=== PATIENT | female | born 1955 | race Caucasian/White ===

== ENCOUNTER → 2016-07-14 | Outpatient (CLI) | payer OTHER ==
[2016-07-14 19:08] LABS: MEAN CORPUSCULAR HGB CONC 32.7 g/dl (32.0-36.5); MEAN CORPUSCULAR VOLUME 94.9 fl (80.0-96.0); RED CELL DISTRIBUTION WIDTH 12.8 % (11.5-14.5); WHITE BLOOD COUNT 8.1 K/mm3 (4.0-10.0)
[2016-07-14 19:23] LABS: ALBUMIN 3.8 GM/DL (3.2-5.2); ALKALINE PHOSPHATASE 190 U/L (45-117); ALT/SGPT 25 U/L (12-78); ANION GAP 8 MEQ/L (8-16); AST/SGOT 26 U/L (15-37); BILIRUBIN,TOTAL 0.5 MG/DL (0.2-1.0); BLOOD UREA NITROGEN 12 MG/DL (7-18); CALCIUM LEVEL 9.3 MG/DL (8.5-10.1); CARBON DIOXIDE LEVEL 31 MEQ/L (21-32); CHLORIDE LEVEL 101 MEQ/L (98-107); CREATININE FOR GFR 0.93 MG/DL (0.55-1.02); GLOMERULAR FILTRATION RATE > 60.0 (>51); GLUCOSE, FASTING 76 MG/DL (70-105); SODIUM LEVEL 140 MEQ/L (136-145); TOTAL PROTEIN 7.6 GM/DL (6.4-8.2)
== END ==
LOC: M LAB 16:24
PROVIDERS: ATTEND Physician Assistant
DX: R19.7 Diarrhea, unspecified (principal); K92.1 Melena

== ENCOUNTER → 2016-10-24 | Outpatient (REF) | payer OTHER | LOC: M LAB REF 20:34 | PROVIDERS: ATTEND Physician Assistant Medical | DX: N39.0 Urinary tract infection, site not specified (principal) ==

== ENCOUNTER → 2016-11-02 | Outpatient (REF) | payer OTHER | LOC: M SFHCADAM 12:07 | PROVIDERS: ATTEND Family Medicine | DX: R35.0 Frequency of micturition (principal) ==

== ENCOUNTER → 2016-11-19 | Outpatient (CLI) | payer OTHER ==
--- NOTE | 2016-11-19 12:11 | REP ---
Lumbar spine series: Five views. History: Chronic low back pain. No comparison studies. Findings: Lumbar vertebral body heights are preserved. Alignment is normal. There is fairly advanced degenerative disc disease in the lumbar spine at each level. This is most pronounced at L4-5 where the disc is quite narrowed with vacuum phenomenon and reactive sclerosis on either side of the 4-5 disc. Moderate degenerative disc changes are noted at L3-4 and L2-3 as well. Mild discogenic spurring is seen at L1-2. Disc spaces at all these levels are somewhat narrowed. On the AP view, there is a mild levoconvex curve in the lower lumbar spine. Psoas margins are symmetric. Sacrum and SI joints are intact. Pedicles and posterior elements are intact. There is no evidence of spondylolysis or spondylolisthesis. There is osteoarthritic facet sclerosis and narrowing and hypertrophy bilaterally at L4-5, L5-S1 and to some degree, at L3-4. Impression: Moderate degenerative spondylosis changes as described above. Signed by Destin Osborn MD 11/19/2016 12:58 P
== END ==
LOC: M ADAMS 11:03
PROVIDERS: ATTEND Physician Assistant
DX: G89.29 Other chronic pain (principal)

== ENCOUNTER → 2016-12-14 | Outpatient (CLI) | payer OTHER ==
--- NOTE | 2016-12-15 09:14 | REP ---
CT of the abdomen pelvis without IV or bowel contrast: Comparison is 09/16/2012. The visualized lung greenberg are unremarkable. There are multiple gallbladder calculi. This is unchanged. There is no gallbladder wall thickening or pericholecystic fluid or biliary duct dilatation. The unenhanced hepatic parenchyma is homogeneous and unchanged. The pancreas and spleen are normal size and unremarkable. The adrenals are unremarkable. There is a right renal upper pole cyst measuring 3.6 cm in diameter. This measured 2.5 cm previously. There are no renal calculi. There is no hydronephrosis. There is no retroperitoneal hematoma. The study is insensitive for aortic dissection in the absence of IV contrast. There is occasional aortic calcified atheroma. There is no change from the comparison study. There is no bowel distension. Mesentery is unremarkable. Pelvis: The patient states she has had appendectomy. There is a 2.0 cm low-density nodule in the left adnexa containing calcification and septation, unchanged. This could represent a cyst with wall calcification or dermoid. The right adnexa is unremarkable. The uterus and bladder are unremarkable. There is no pelvic adenopathy or ascites. The pelvic bowel loops are unremarkable. Impression: Cholelithiasis without evidence of acute cholecystitis or biliary duct dilatation. There is no retroperitoneal hematoma. In the absence of IV contrast the study is insensitive for aortic dissection. Chronic stable 2.0 left adnexal nodule, low density with rim calcification and septation, unchanged, dermoid versus chronic cyst. Signed by Rafy Lala MD 12/14/2016 08:10 A
== END ==
LOC: M RAD 07:10
PROVIDERS: ATTEND Family Medicine
DX: M54.5 Low back pain (principal); K80.20 Calculus of gallbladder without cholecystitis without obstruction; R93.5 Abnormal findings on diagnostic imaging of other abdominal regions, including retroperitoneum

== ENCOUNTER → 2017-01-04 | Outpatient (REF) | payer OTHER | LOC: M SMT 13:30 | PROVIDERS: ATTEND Nurse Practitioner Women's Health | DX: R35.0 Frequency of micturition (principal) ==

== ENCOUNTER → 2017-06-01 | Outpatient (REF) | payer OTHER ==
[2017-06-01 10:49] LABS: APPEARANCE, URINE HAZY (CLEAR); BACTERIA, URINE AUTO NEGATIVE (NEGATIVE); BILIRUBIN, URINE AUTO NEGATIVE (NEGATIVE); BLOOD, URINE BLOOD 1+ (NEGATIVE); COLOR, URINE YELLOW (YELLOW); GLUCOSE, URINE (UA) AUTO NEGATIVE (NEGATIVE); KETONE, URINE AUTO NEGATIVE (NEGATIVE); LEUKOCYTE ESTERASE, URINE AUTO 2+ (NEGATIVE); NITRITE, URINE AUTO NEGATIVE (NEGATIVE); PROTEIN, URINE AUTO NEGATIVE (NEGATIVE); RBC, URINE AUTO 2 /HPF (0-3); SQUAMOUS EPITHELIAL CELL UR AU 2 /HPF (0-6); UROBILINOGEN, URINE AUTO 0.2 mg/dL (0.0-2.0); WBC, URINE AUTO 3 /HPF (0-3)
== END ==
LOC: M LAB REF 10:20
DX: R35.0 Frequency of micturition (principal)

== ENCOUNTER → 2017-06-12 | Outpatient (REF) | payer OTHER ==
[2017-06-12 21:59] LABS: APPEARANCE, URINE HAZY (CLEAR); BACTERIA, URINE AUTO 1+ (NEGATIVE); BILIRUBIN, URINE AUTO NEGATIVE (NEGATIVE); BLOOD, URINE BLOOD 1+ (NEGATIVE); COLOR, URINE YELLOW (YELLOW); GLUCOSE, URINE (UA) AUTO NEGATIVE (NEGATIVE); KETONE, URINE AUTO NEGATIVE (NEGATIVE); LEUKOCYTE ESTERASE, URINE AUTO 3+ (NEGATIVE); NITRITE, URINE AUTO NEGATIVE (NEGATIVE); PROTEIN, URINE AUTO NEGATIVE (NEGATIVE); RBC, URINE AUTO 4 /HPF (0-3); SPECIFIC GRAVITY URINE AUTO 1.012 (1.002-1.035); SQUAMOUS EPITHELIAL CELL UR AU 9 /HPF (0-6); UROBILINOGEN, URINE AUTO 0.2 mg/dL (0.0-2.0); WBC, URINE AUTO 21 /HPF (0-3)
== END ==
LOC: M LAB REF 11:17
DX: N39.0 Urinary tract infection, site not specified (principal)

== ENCOUNTER → 2017-08-03 | Outpatient (REF) | payer OTHER ==
[2017-08-03 21:52] LABS: APPEARANCE, URINE CLEAR (CLEAR); BACTERIA, URINE AUTO 1+ (NEGATIVE); BILIRUBIN, URINE AUTO NEGATIVE (NEGATIVE); BLOOD, URINE BLOOD 3+ (NEGATIVE); COLOR, URINE YELLOW (YELLOW); GLUCOSE, URINE (UA) AUTO NEGATIVE (NEGATIVE); KETONE, URINE AUTO NEGATIVE (NEGATIVE); LEUKOCYTE ESTERASE, URINE AUTO 2+ (NEGATIVE); MUCUS, URINE SMALL (NEGATIVE); NITRITE, URINE AUTO NEGATIVE (NEGATIVE); PROTEIN, URINE AUTO NEGATIVE (NEGATIVE); RBC, URINE AUTO 3 /HPF (0-3); SPECIFIC GRAVITY URINE AUTO 1.003 (1.002-1.035); SQUAMOUS EPITHELIAL CELL UR AU 1 /HPF (0-6); UROBILINOGEN, URINE AUTO 0.2 mg/dL (0.0-2.0); WBC, URINE AUTO 18 /HPF (0-3)
== END ==
LOC: M LAB REF 21:15
DX: N39.0 Urinary tract infection, site not specified (principal)
CPT/HCPCS: 81001

== ENCOUNTER → 2017-08-26 | Outpatient (REF) | payer OTHER ==
[2017-08-26 14:13] LABS: APPEARANCE, URINE CLEAR (CLEAR); BACTERIA, URINE AUTO 1+ (NEGATIVE); BILIRUBIN, URINE AUTO NEGATIVE (NEGATIVE); BLOOD, URINE BLOOD 2+ (NEGATIVE); COLOR, URINE YELLOW (YELLOW); GLUCOSE, URINE (UA) AUTO NEGATIVE (NEGATIVE); KETONE, URINE AUTO NEGATIVE (NEGATIVE); LEUKOCYTE ESTERASE, URINE AUTO 3+ (NEGATIVE); NITRITE, URINE AUTO NEGATIVE (NEGATIVE); PROTEIN, URINE AUTO NEGATIVE (NEGATIVE); RBC, URINE AUTO 2 /HPF (0-3); SPECIFIC GRAVITY URINE AUTO 1.003 (1.002-1.035); SQUAMOUS EPITHELIAL CELL UR AU 3 /HPF (0-6); UROBILINOGEN, URINE AUTO 0.2 mg/dL (0.0-2.0); WBC, URINE AUTO 7 /HPF (0-3)
== END ==
LOC: M LAB REF 12:55
DX: N39.0 Urinary tract infection, site not specified (principal)

== ENCOUNTER → 2018-03-14 | Outpatient (REF) | payer OTHER | LOC: M SFHCPLAZ 11:03 | DX: K73.2 Chronic active hepatitis, not elsewhere classified (principal) ==

== ENCOUNTER → 2018-03-21 | Outpatient (REF) | payer OTHER ==
[2018-03-21 13:32] LABS: APPEARANCE, URINE CLEAR (CLEAR); BACTERIA, URINE AUTO 1+ (NEGATIVE); BILIRUBIN, URINE AUTO NEGATIVE (NEGATIVE); BLOOD, URINE BLOOD NEGATIVE (NEGATIVE); COLOR, URINE YELLOW (YELLOW); GLUCOSE, URINE (UA) AUTO NEGATIVE (NEGATIVE); KETONE, URINE AUTO NEGATIVE (NEGATIVE); LEUKOCYTE ESTERASE, URINE AUTO NEGATIVE (NEGATIVE); NITRITE, URINE AUTO NEGATIVE (NEGATIVE); PROTEIN, URINE AUTO NEGATIVE (NEGATIVE); RBC, URINE AUTO 3 /HPF (0-3); SPECIFIC GRAVITY URINE AUTO 1.011 (1.002-1.035); SQUAMOUS EPITHELIAL CELL UR AU 2 /HPF (0-6); UROBILINOGEN, URINE AUTO 0.2 mg/dL (0.0-2.0); WBC, URINE AUTO 0 /HPF (0-3)
== END ==
LOC: M SMT 13:00
DX: R35.0 Frequency of micturition (principal)

== ENCOUNTER → 2018-03-29 | Outpatient (CLI) | payer OTHER | LOC: M RAD 10:40 | DX: R35.0 Frequency of micturition (principal); N28.1 Cyst of kidney, acquired | CPT/HCPCS: 76775 ==

== ENCOUNTER → 2018-03-29 | Outpatient (CLI) | payer OTHER ==
[2018-03-29 11:41] LABS: BASO % 0.4 % (0.0-1.0); EOS # 0.2 10^3/uL (0.0-0.50); EOS % 3.1 % (0.0-3.0); HEMATOCRIT 38.2 % (36.0-47.0); HEMOGLOBIN 12.6 g/dl (12.0-15.5); IMMATURE GRANULOCYTE % 0.4 % (0-3.0); LYMPH # 2.5 10^3/uL (1.5-4.5); LYMPH % 37.1 % (24.0-44.0); MEAN CORPUSCULAR HEMOGLOBIN 31.8 pg (27.0-33.0); MEAN CORPUSCULAR VOLUME 96.5 fl (80.0-96.0); MONO # 0.6 10^3/uL (0.0-0.8); MONO % 8.5 % (0.0-5.0); NEUTROPHILS # 3.5 10^3/uL (1.8-7.7); NEUTROPHILS % 50.5 % (36.0-66.0); PLATELET COUNT, AUTOMATED 237 10^3/uL (150-450); RED BLOOD COUNT 3.96 10^6/uL (4.00-5.40); RED CELL DISTRIBUTION WIDTH 13.1 % (11.5-14.5); WHITE BLOOD COUNT 6.9 10^3/uL (4.0-10.0)
[2018-03-29 11:56] LABS: ALBUMIN 3.3 GM/DL (3.2-5.2); ALBUMIN/GLOBULIN RATIO 0.89 (1.00-1.93); ALKALINE PHOSPHATASE 168 U/L (45-117); ALT/SGPT 29 U/L (12-78); ANION GAP 6 MEQ/L (8-16); AST/SGOT 24 U/L (7-37); BILIRUBIN,TOTAL 0.2 MG/DL (0.2-1.0); BLOOD UREA NITROGEN 9 MG/DL (7-18); CALCIUM LEVEL 8.8 MG/DL (8.8-10.2); CARBON DIOXIDE LEVEL 29 MEQ/L (21-32); CHLORIDE LEVEL 104 MEQ/L (98-107); CREATININE FOR GFR 0.81 MG/DL (0.55-1.30); GLOMERULAR FILTRATION RATE > 60.0 (>45); GLUCOSE, FASTING 86 MG/DL (70-100); POTASSIUM SERUM 4.4 MEQ/L (3.5-5.1); SODIUM LEVEL 139 MEQ/L (136-145)
[2018-03-30 08:37] LABS: HIV 1&2 SCREEN CENTAUR NEGATIVE (NEGATIVE)
[2018-04-06 12:59] LABS: COMMENT FOR HEPC GENOTYPE Please note:; HEPATITIS C VIRUS GENOTYPE 1a
[2018-04-06 13:06] LABS: FIBROSIS SCORE 0.14
[2018-04-06 13:07] LABS: FIBROSIS STAGE FO-No Fibrosis; NECROINFLAM SCORE A0-No Activity
[2018-04-06 13:08] LABS: ALPHA 2-MACROGLOBULIN 299 mg/dL
[2018-04-06 13:09] LABS: HAPTOGLOBIN 165 mg/dL
[2018-04-06 13:10] LABS: APOLIPOPROTEIN A-1 165 mg/dL; TOTAL BILIRUBIN 0.1 mg/dL
[2018-04-06 13:11] LABS: ALT 23 IU/L; GGT 48 IU/L
[2018-04-06 13:13] LABS: FIBROSIS SCORING Fibrosis Scoring:; INTERPRETATION Interpretations:
[2018-04-06 13:15] LABS: NECROINFLAM SCORING Necroinflamm Activit
[2018-04-06 13:16] LABS: LIMITATIONS Limitations:
[2018-04-06 13:18] LABS: COMMENT: Comment:
== END ==
LOC: M LAB 10:53
DX: K73.2 Chronic active hepatitis, not elsewhere classified (principal)
CPT/HCPCS: 82247

== ENCOUNTER → 2018-07-12 | Outpatient (CLI) | payer OTHER ==
[2018-07-12 15:05] LABS: INR 2.73; PROTHROMBIN TIME 29.5 SECONDS (12.1-14.4)
== END ==
LOC: M LAB 14:26
DX: I82.502 Chronic embolism and thrombosis of unspecified deep veins of left lower extremity (principal)

== ENCOUNTER → 2018-08-13 | Outpatient (REF) | payer OTHER, MEDICAID ==
[2018-08-13 20:05] LABS: APPEARANCE, URINE TURBID (CLEAR); BACTERIA, URINE AUTO NEGATIVE (NEGATIVE); BILIRUBIN, URINE AUTO 1+ (NEGATIVE); BLOOD, URINE BLOOD 3+ (NEGATIVE); COLOR, URINE YELLOW (YELLOW); GLUCOSE, URINE (UA) AUTO NEGATIVE (NEGATIVE); KETONE, URINE AUTO TRACE mg/dL (NEGATIVE); LEUKOCYTE ESTERASE, URINE AUTO 1+ (NEGATIVE); MUCUS, URINE MODERATE (NEGATIVE); NITRITE, URINE AUTO NEGATIVE (NEGATIVE); PROTEIN, URINE AUTO 2+ mg/dL (NEGATIVE); RBC, URINE AUTO TNTC /HPF (0-3); SQUAMOUS EPITHELIAL CELL UR AU 21 /HPF (0-6); TRANSITIONAL EPITHELIAL AUTO 6 /HPF; UROBILINOGEN, URINE AUTO 0.2 mg/dL (0.0-2.0); WBC, URINE AUTO TNTC /HPF (0-3)
== END ==
LOC: M LAB REF 09:10
PROVIDERS: ATTEND Physician Assistant
DX: N39.0 Urinary tract infection, site not specified (principal)

== ENCOUNTER → 2018-09-08 | Outpatient (REF) | payer OTHER ==
[2018-09-08 18:49] LABS: APPEARANCE, URINE CLOUDY (CLEAR); BACTERIA, URINE AUTO 1+ (NEGATIVE); BILIRUBIN, URINE AUTO NEGATIVE (NEGATIVE); BLOOD, URINE BLOOD NEGATIVE (NEGATIVE); COLOR, URINE YELLOW (YELLOW); GLUCOSE, URINE (UA) AUTO NEGATIVE (NEGATIVE); KETONE, URINE AUTO TRACE mg/dL (NEGATIVE); LEUKOCYTE ESTERASE, URINE AUTO TRACE (NEGATIVE); MUCUS, URINE SMALL (NEGATIVE); NITRITE, URINE AUTO NEGATIVE (NEGATIVE); PROTEIN, URINE AUTO NEGATIVE (NEGATIVE); RBC, URINE AUTO 5 /HPF (0-3); SPECIFIC GRAVITY URINE AUTO 1.014 (1.002-1.035); SQUAMOUS EPITHELIAL CELL UR AU 18 /HPF (0-6); UROBILINOGEN, URINE AUTO 0.2 mg/dL (0.0-2.0); WBC, URINE AUTO 3 /HPF (0-3)
== END ==
LOC: M LAB REF 18:20
PROVIDERS: ATTEND Physician Assistant
DX: N39.0 Urinary tract infection, site not specified (principal)

== ENCOUNTER 2018-10-03 21:20 | Emergency (ER) | payer OTHER ==
[~2018-10-03] VITALS: Ht 157.5 cm; Wt 71.8 kg
[2018-10-03] MEDS ORDERED: LORA-674 (21:29)
[2018-10-03] MEDS ORDERED: WARF-23 (21:29)
[2018-10-03] MEDS ORDERED: PROP60TA18 (21:29)
[2018-10-03] MEDS ORDERED: PARO40TA2 (21:29)
[2018-10-03] MEDS ORDERED: AMIT100TA PO ×2 (21:29→23:45)
[2018-10-03] MEDS ORDERED: OMEP-218 (21:29)
[2018-10-03] MEDS ORDERED: PROP60TA14 PO (23:45)
[2018-10-03] MEDS ORDERED: OMEP-218 PO (23:45)
[2018-10-03] MEDS ORDERED: MUCI600T31 PO (23:45)
[2018-10-03] MEDS ORDERED: WARF-23 PO (23:45)
[2018-10-03] MEDS ORDERED: PARO40TA3 PO (23:45)
[2018-10-04 00:08] VITALS: BP 112/74
== END 2018-10-04 00:09 | disposition home or self-care (01) ==
LOC: M ED 21:20
DX: Z76.0 Encounter for issue of repeat prescription (principal); J31.0 Chronic rhinitis; K21.9 Gastro-esophageal reflux disease without esophagitis; I34.1 Nonrheumatic mitral (valve) prolapse; Z79.899 Other long term (current) drug therapy; Z79.01 Long term (current) use of anticoagulants

== ENCOUNTER → 2018-10-16 | Outpatient (REF) | payer OTHER ==
[~2018-10-16] MED LIST: AMIT100TA PO; LORA-674; MUCI600T31 PO; OMEP-218; OMEP-218 PO; PARO40TA2; PARO40TA3 PO; PROP60TA14 PO; PROP60TA18; WARF-23; WARF-23 PO
[2018-10-16 18:26] LABS: APPEARANCE, URINE CLEAR (CLEAR); BACTERIA, URINE AUTO NEGATIVE (NEGATIVE); BILIRUBIN, URINE AUTO NEGATIVE (NEGATIVE); BLOOD, URINE BLOOD NEGATIVE (NEGATIVE); COLOR, URINE YELLOW (YELLOW); GLUCOSE, URINE (UA) AUTO NEGATIVE (NEGATIVE); KETONE, URINE AUTO TRACE mg/dL (NEGATIVE); LEUKOCYTE ESTERASE, URINE AUTO NEGATIVE (NEGATIVE); NITRITE, URINE AUTO NEGATIVE (NEGATIVE); PROTEIN, URINE AUTO NEGATIVE (NEGATIVE); RBC, URINE AUTO 2 /HPF (0-3); SPECIFIC GRAVITY URINE AUTO 1.012 (1.002-1.035); SQUAMOUS EPITHELIAL CELL UR AU 1 /HPF (0-6); UROBILINOGEN, URINE AUTO 0.2 mg/dL (0.0-2.0); WBC, URINE AUTO 1 /HPF (0-3)
== END ==
LOC: M LAB REF 10:26
PROVIDERS: ATTEND Physician Assistant Medical
DX: N39.0 Urinary tract infection, site not specified (principal)

== ENCOUNTER → 2018-10-23 | Outpatient (REF) | payer OTHER ==
[2018-10-23 17:42] LABS: APPEARANCE, URINE HAZY (CLEAR); BACTERIA, URINE AUTO NEGATIVE (NEGATIVE); BILIRUBIN, URINE AUTO NEGATIVE (NEGATIVE); BLOOD, URINE BLOOD 1+ (NEGATIVE); COLOR, URINE YELLOW (YELLOW); GLUCOSE, URINE (UA) AUTO NEGATIVE (NEGATIVE); KETONE, URINE AUTO TRACE mg/dL (NEGATIVE); LEUKOCYTE ESTERASE, URINE AUTO NEGATIVE (NEGATIVE); MUCUS, URINE SMALL (NEGATIVE); NITRITE, URINE AUTO NEGATIVE (NEGATIVE); PROTEIN, URINE AUTO NEGATIVE (NEGATIVE); RBC, URINE AUTO 10 /HPF (0-3); SPECIFIC GRAVITY URINE AUTO 1.015 (1.002-1.035); SQUAMOUS EPITHELIAL CELL UR AU 6 /HPF (0-6); UROBILINOGEN, URINE AUTO 0.2 mg/dL (0.0-2.0); WBC, URINE AUTO 2 /HPF (0-3)
== END ==
LOC: M LAB REF 10:46
PROVIDERS: ATTEND Nurse Practitioner Family
DX: N39.0 Urinary tract infection, site not specified (principal)

== ENCOUNTER → 2018-12-01 | Outpatient (REF) | payer OTHER ==
[2018-12-01 19:29] LABS: MONO SCRN NEGATIVE (NEGATIVE)
== END ==
LOC: M LAB REF 17:37
PROVIDERS: ATTEND Nurse Practitioner Adult Health
DX: J02.9 Acute pharyngitis, unspecified (principal)

== ENCOUNTER → 2019-01-13 | Outpatient (REF) | payer OTHER ==
[2019-01-13 17:16] LABS: ALBUMIN 3.4 GM/DL (3.2-5.2); ALT/SGPT 23 U/L (12-78); BILIRUBIN,TOTAL 0.5 MG/DL (0.2-1.0); BLOOD UREA NITROGEN 5 MG/DL (7-18); CALCIUM LEVEL 9.1 MG/DL (8.8-10.2); CARBON DIOXIDE LEVEL 26 MEQ/L (21-32); CHLORIDE LEVEL 108 MEQ/L (98-107); CHOLESTEROL LEVEL 156 MG/DL (<200); CHOLESTEROL RISK RATIO 2.557 (<5); CREATININE FOR GFR 0.79 MG/DL (0.55-1.30); GLOMERULAR FILTRATION RATE > 60.0 (>45); GLUCOSE, FASTING 95 MG/DL (70-100); HDL CHOLESTEROL 61 MG/DL (>40); LDL CHOLESTEROL 73 MG/DL (<100); NON-HDL-C 95 MG/DL; POTASSIUM SERUM 4.1 MEQ/L (3.5-5.1); SODIUM LEVEL 139 MEQ/L (136-145); TRIGLYCERIDES LEVEL 111 MG/DL (<150)
[2019-01-13 17:24] LABS: BASO % 0.3 % (0.0-1.0); EOS # 0.1 10^3/uL (0.0-0.5); EOS % 1.8 % (0.0-3.0); HEMATOCRIT 39.1 % (36.0-47.0); LYMPH # 2.7 10^3/uL (1.5-5.0); LYMPH % 37.7 % (24.0-44.0); MEAN CORPUSCULAR HEMOGLOBIN 30.7 pg (27.0-33.0); MEAN CORPUSCULAR HGB CONC 33.2 g/dl (32.0-36.5); MEAN CORPUSCULAR VOLUME 92.4 fl (80.0-96.0); MONO # 0.6 10^3/uL (0.0-0.8); MONO % 8.2 % (0.0-5.0); NEUTROPHILS # 3.7 10^3/uL (1.5-8.5); NEUTROPHILS % 51.6 % (36.0-66.0); PLATELET COUNT, AUTOMATED 220 10^3/uL (150-450); RED BLOOD COUNT 4.23 10^6/uL (4.00-5.40); WHITE BLOOD COUNT 7.2 10^3/uL (4.0-10.0)
[2019-01-13 17:31] LABS: HEMOGLOBIN A1c 5.9 %; TOTAL 25(OH) VITAMIN D 24.9 NG/ML (30.0-100.0)
== END ==
LOC: M LAB REF 16:16
PROVIDERS: ATTEND Family Medicine
DX: Z13.228 Encounter for screening for other metabolic disorders (principal)

== ENCOUNTER → 2019-02-10 | Outpatient (REF) | payer OTHER ==
[~2019-02-10] MED LIST changes: +ALBU8.5H INH; +CEFD1CAP8 PO; +ELIQ5TAB PO; +FLUC150T PO; +PRED10TA2 PO
[2019-02-10 21:31] LABS: APPEARANCE, URINE CLEAR (CLEAR); BACTERIA, URINE AUTO NEGATIVE (NEGATIVE); BILIRUBIN, URINE AUTO NEGATIVE (NEGATIVE); BLOOD, URINE BLOOD 1+ (NEGATIVE); COLOR, URINE YELLOW (YELLOW); GLUCOSE, URINE (UA) AUTO NEGATIVE (NEGATIVE); KETONE, URINE AUTO NEGATIVE (NEGATIVE); LEUKOCYTE ESTERASE, URINE AUTO NEGATIVE (NEGATIVE); NITRITE, URINE AUTO NEGATIVE (NEGATIVE); PROTEIN, URINE AUTO NEGATIVE (NEGATIVE); RBC, URINE AUTO 2 /HPF (0-3); SPECIFIC GRAVITY URINE AUTO 1.005 (1.002-1.035); SQUAMOUS EPITHELIAL CELL UR AU 2 /HPF (0-6); UROBILINOGEN, URINE AUTO 0.2 mg/dL (0.0-2.0); WBC, URINE AUTO 1 /HPF (0-3)
== END ==
LOC: M LAB REF 09:02
PROVIDERS: ATTEND Physician Assistant
DX: N39.0 Urinary tract infection, site not specified (principal)

== ENCOUNTER → 2019-03-02 | Outpatient (REF) | payer OTHER ==
[~2019-03-02] MED LIST changes: -ALBU8.5H INH; -CEFD1CAP8 PO; -ELIQ5TAB PO; -FLUC150T PO; -PRED10TA2 PO
== END ==
LOC: M LAB REF 11:30
PROVIDERS: ATTEND Physician Assistant Medical
DX: R30.0 Dysuria (principal)

== ENCOUNTER 2019-04-12 19:24 | Emergency (ER) | payer OTHER ==
[~2019-04-12] VITALS: Ht 157.5 cm; Wt 74.9 kg
[2019-04-12] MEDS ORDERED: ACETAMINOPHEN TAB 650MG DOSE (2X325MG) PO ONE (19:45)
[2019-04-12] MEDS ORDERED: FLUC150T PO (19:50)
[2019-04-12] MEDS ORDERED: ELIQ5TAB PO (19:50)
[2019-04-12] MEDS ORDERED: CEFD1CAP8 PO (19:50)
[2019-04-12] MEDS ORDERED: ALBU8.5H INH (19:50)
[2019-04-12] MEDS ORDERED: PRED10TA2 PO (19:50)
--- NOTE | 2019-04-12 19:50 | REPVR ---
PROCEDURE INFORMATION: Exam: CT Head Without Contrast Exam date and time: 04/12/2019 7:33 PM Age: 64 years old Clinical history: Injury or trauma; Fall; Initial encounter; Blunt trauma (contusions or hematomas); Additional info: Fall head injury [facility] TECHNIQUE: Imaging protocol: Computed tomography of the head without contrast. Radiation optimization: All CT scans at this facility use at least one of these dose optimization techniques: automated exposure control; mA and/or kV adjustment per patient size (includes targeted exams where dose is matched to clinical indication); or iterative reconstruction. Other technique: STROKE PROTOCOL was implemented. COMPARISON: CT Head without contrast 06/20/2015 7:19 PM FINDINGS: Brain: No acute cerebral infarction. No hemorrhage. Unremarkable white matter. No mass effect. Ventricles: Normal. No ventriculomegaly. Bones/joints: Unremarkable. No acute fracture. Sinuses: Visualized sinuses are unremarkable. No fluid levels. Mastoid air cells: Visualized mastoid air cells are well aerated. Soft tissues: Atherosclerosis. IMPRESSION: No acute intracranial abnormality. ASSESSMENT: ASPECTS ([facility] Stroke Program Early CT Score) is 10. Electronically signed by: Abbie Francisco On 04/12/2019 19:49:42 PM
--- NOTE | 2019-04-12 19:56 | REPVR ---
PROCEDURE INFORMATION: Exam: CT Cervical Spine Without Contrast Exam date and time: 04/12/2019 7:33 PM Age: 64 years old Clinical history: Injury or trauma; Fall; Initial encounter; Blunt trauma; Additional info: Fall head injury [facility] TECHNIQUE: Imaging protocol: Computed tomography images of the cervical spine without contrast. Radiation optimization: All CT scans at this facility use at least one of these dose optimization techniques: automated exposure control; mA and/or kV adjustment per patient size (includes targeted exams where dose is matched to clinical indication); or iterative reconstruction. COMPARISON: CT Spine,cervical w/o contrast 06/20/2015 7:19 PM FINDINGS: Vertebrae: No acute fracture. Normal alignment. Diffuse degeneration of the uncovertebral and facet joints and vertebral body endplates with disc space narrowing in the mid to lower cervical spine. C2-C3: No spinal stenosis. No neural foraminal narrowing. C3-C4: No spinal stenosis. No neural foraminal narrowing. C4-C5: No spinal stenosis. Moderate bilateral neural foraminal narrowing. C5-C6: No spinal stenosis. Mild left neural foraminal narrowing. C6-C7: No spinal stenosis. No neural foraminal narrowing. C7-T1: No spinal stenosis. No neural foraminal narrowing. Soft tissues: No prevertebral soft tissue swelling. Lungs: There is no evidence of pneumothorax. IMPRESSION: No acute fracture or dislocation in the cervical spine. Diffuse degeneration without significant spinal canal stenosis or neural foraminal narrowing. There is been progression of degeneration comparison to the 06/20/2015 CT. Electronically signed by: Abbie Francisco On 04/12/2019 19:56:35 PM
[2019-04-12 20:15] VITALS: BP 138/89
--- NOTE | 2019-04-12 20:22 | REP ---
Clinical: Trauma . Comparison: 08/01/2015 . Technique: PA and lateral. Findings: The mediastinum and cardiac silhouette are normal. The lung greenberg are clear and without acute consolidation, effusion, or pneumothorax. The skeletal structures are intact and normal. Impression: 1. No acute cardiopulmonary process. Electronically Signed by Danilo Saha MD 04/12/2019 08:13 P
== END 2019-04-12 21:18 | disposition home or self-care (01) ==
LOC: M ED 19:24
DX: S09.90XA Unspecified injury of head, initial encounter (principal); W00.9XXA Unspecified fall due to ice and snow, initial encounter; Y92.410 Unspecified street and highway as the place of occurrence of the external cause; Y93.9 Activity, unspecified; Y99.9 Unspecified external cause status; K21.9 Gastro-esophageal reflux disease without esophagitis; J44.9 Chronic obstructive pulmonary disease, unspecified; G43.909 Migraine, unspecified, not intractable, without status migrainosus; F32.9 Major depressive disorder, single episode, unspecified; Z86.19 Personal history of other infectious and parasitic diseases; Z86.718 Personal history of other venous thrombosis and embolism; I49.3 Ventricular premature depolarization; I34.1 Nonrheumatic mitral (valve) prolapse; F17.200 Nicotine dependence, unspecified, uncomplicated; Z79.82 Long term (current) use of aspirin; Z79.899 Other long term (current) drug therapy

== ENCOUNTER → 2019-05-17 | Outpatient (CLI) | payer OTHER ==
[~2019-05-17] MED LIST changes: +ALBU8.5H INH; +CEFD1CAP8 PO; +ELIQ5TAB PO; +FLUC150T PO; +PRED10TA2 PO
--- NOTE | 2019-05-18 11:21 | REP ---
Clinical: Acute bronchitis . Comparison: 04/12/2019 . Technique: PA and lateral. Findings: The mediastinum and cardiac silhouette are normal. The lung greenberg are clear and without acute consolidation, effusion, or pneumothorax. The skeletal structures are intact and normal. Impression: 1. No acute cardiopulmonary process. Electronically Signed by Danilo Saha MD 05/18/2019 05:13 A
== END ==
LOC: M RAD 14:19
PROVIDERS: ATTEND Nurse Practitioner Adult Health
DX: J20.9 Acute bronchitis, unspecified (principal); J44.9 Chronic obstructive pulmonary disease, unspecified

== ENCOUNTER → 2019-06-01 | Outpatient (REF) | payer OTHER ==
[2019-06-01 19:54] LABS: APPEARANCE, URINE HAZY (CLEAR); BACTERIA, URINE AUTO 1+ (NEGATIVE); BILIRUBIN, URINE AUTO NEGATIVE (NEGATIVE); BLOOD, URINE BLOOD 1+ (NEGATIVE); COLOR, URINE YELLOW (YELLOW); GLUCOSE, URINE (UA) AUTO NEGATIVE (NEGATIVE); KETONE, URINE AUTO NEGATIVE (NEGATIVE); LEUKOCYTE ESTERASE, URINE AUTO 1+ (NEGATIVE); MUCUS, URINE SMALL (NEGATIVE); NITRITE, URINE AUTO NEGATIVE (NEGATIVE); PROTEIN, URINE AUTO NEGATIVE (NEGATIVE); RBC, URINE AUTO 4 /HPF (0-3); SPECIFIC GRAVITY URINE AUTO 1.016 (1.002-1.035); SQUAMOUS EPITHELIAL CELL UR AU 5 /HPF (0-6); WBC, URINE AUTO 30 /HPF (0-3)
== END ==
LOC: M LAB REF 18:39
PROVIDERS: ATTEND Nurse Practitioner Adult Health
DX: R30.0 Dysuria (principal)

== ENCOUNTER → 2019-06-02 | Outpatient (REF) | payer OTHER ==
[2019-06-02 14:04] LABS: AMORPHOUS SEDIMENT SMALL (NEGATIVE); APPEARANCE, URINE HAZY (CLEAR); BACTERIA, URINE AUTO 1+ (NEGATIVE); BILIRUBIN, URINE AUTO NEGATIVE (NEGATIVE); BLOOD, URINE BLOOD 1+ (NEGATIVE); COLOR, URINE YELLOW (YELLOW); GLUCOSE, URINE (UA) AUTO NEGATIVE (NEGATIVE); KETONE, URINE AUTO NEGATIVE (NEGATIVE); LEUKOCYTE ESTERASE, URINE AUTO NEGATIVE (NEGATIVE); MUCUS, URINE SMALL (NEGATIVE); NITRITE, URINE AUTO NEGATIVE (NEGATIVE); PROTEIN, URINE AUTO NEGATIVE (NEGATIVE); RBC, URINE AUTO 7 /HPF (0-3); SPECIFIC GRAVITY URINE AUTO 1.016 (1.002-1.035); SQUAMOUS EPITHELIAL CELL UR AU 7 /HPF (0-6); UROBILINOGEN, URINE AUTO 0.2 mg/dL (0.0-2.0); WBC, URINE AUTO 4 /HPF (0-3)
== END ==
LOC: M LAB REF 13:45
PROVIDERS: ATTEND Physician Assistant
DX: N39.0 Urinary tract infection, site not specified (principal)

== ENCOUNTER → 2019-06-22 | Outpatient (REF) | payer OTHER | LOC: M LAB REF 18:00 | PROVIDERS: ATTEND Physician Assistant | DX: R30.0 Dysuria (principal) ==

== ENCOUNTER → 2019-09-28 | Outpatient (CLI) | payer OTHER | LOC: M LABSMTC 10:37 | PROVIDERS: ATTEND Family Medicine | DX: Z03.818 Encounter for observation for suspected exposure to other biological agents ruled out (principal); Z11.59 Encounter for screening for other viral diseases ==

== ENCOUNTER → 2019-12-19 | Outpatient (CLI) | payer OTHER ==
[~2019-12-19] MED LIST changes: +AMOX875T2 PO; +DOCU100C16 PO; +FLUTISP NARES; +MONT10TA4 PO; -OMEP-218; +OXYB5TAB10 PO; -PARO40TA2; +PARO40TA2 PO; +STIO1AER INH; +SUMA50TA2 PO
--- NOTE | 2020-02-02 14:05 | REP ---
PARANASAL SINUS SERIES: 4-VIEWS HISTORY: Headaches. FINDINGS: 4-views of the paranasal sinuses is performed. There is no radiographic evidence of significant sinusitis. I cannot exclude mild mucosal thickening of the right ethmoid sinuses. The adenoids do not appear to be significantly enlarged. IMPRESSION: Possible mild mucosal thickening in the right ethmoid sinuses. Otherwise no compelling radiographic evidence of significant sinusitis. MTDD
== END ==
LOC: M RAD 13:40
PROVIDERS: ATTEND Otolaryngology
DX: R51 Headache (principal)

== ENCOUNTER → 2020-01-05 | Outpatient (CLI) | payer OTHER ==
--- NOTE | 2020-01-23 15:23 | REP ---
CHEST X-RAY: 2-VIEWS HISTORY: Cough, chronic obstructive pulmonary disease (COPD). COMPARISON: 05/17/2019. FINDINGS: The lungs are somewhat hyperinflated with an increase in the AP diameter of the chest unchanged. Lung greenberg are free of infiltrate, however. Pleural angles are sharp. Heart is not enlarged. There are mild degenerative changes in the thoracic spine. Pulmonary vasculature is not increased. IMPRESSION: No acute disease. MTDD
== END ==
LOC: M RAD 08:38
PROVIDERS: ATTEND Physician Assistant
DX: R05 Cough (principal); J44.9 Chronic obstructive pulmonary disease, unspecified

== ENCOUNTER 2020-02-07 11:59 | Emergency (ER) | payer OTHER ==
[~2020-02-07] VITALS: Ht 157.5 cm; Wt 78.7 kg
[~2020-02-07 11:59] MED LIST changes: -AMOX875T2 PO; -DOCU100C16 PO; -FLUTISP NARES; -MONT10TA4 PO; -OXYB5TAB10 PO; -STIO1AER INH; -SUMA50TA2 PO
[2020-02-07] MEDS ORDERED: FLUTISP NARES (12:25)
[2020-02-07] MEDS ORDERED: STIO1AER INH (12:25)
[2020-02-07] MEDS ORDERED: SUMA50TA2 PO (12:25)
[2020-02-07] MEDS ORDERED: MONT10TA4 PO (12:25)
[2020-02-07] MEDS ORDERED: OXYB5TAB10 PO (12:25)
[2020-02-07] MEDS ORDERED: DOCU100C16 PO (12:25)
[2020-02-07] MEDS ORDERED: AMOX875T2 PO (12:25)
[2020-02-07 13:15] VITALS: BP 112/73
== END 2020-02-07 13:51 | disposition home or self-care (01) ==
LOC: M ED 11:59
DX: F41.9 Anxiety disorder, unspecified (principal); I51.9 Heart disease, unspecified; I10 Essential (primary) hypertension; J45.909 Unspecified asthma, uncomplicated; Z87.891 Personal history of nicotine dependence; Z79.01 Long term (current) use of anticoagulants; Z79.899 Other long term (current) drug therapy

== ENCOUNTER → 2020-02-20 | Outpatient (REF) | payer OTHER ==
[~2020-02-20] MED LIST changes: +AMOX875T2 PO; +DOCU100C16 PO; +FLUTISP NARES; +MONT10TA4 PO; +OXYB5TAB10 PO; +STIO1AER INH; +SUMA50TA2 PO
[2020-02-20 15:45] LABS: BASO % 0.3 % (0.0-1.0); EOS # 0.2 10^3/uL (0.0-0.5); EOS % 1.9 % (0.0-3.0); HEMATOCRIT 36.3 % (36.0-47.0); HEMOGLOBIN 11.8 g/dl (12.0-15.5); LYMPH % 33.4 % (24.0-44.0); MEAN CORPUSCULAR HEMOGLOBIN 30.1 pg (27.0-33.0); MEAN CORPUSCULAR HGB CONC 32.5 g/dl (32.0-36.5); MEAN CORPUSCULAR VOLUME 92.6 fl (80.0-96.0); MONO # 0.7 10^3/uL (0.0-0.8); MONO % 8.1 % (0.0-5.0); NEUTROPHILS # 5.1 10^3/uL (1.5-8.5); NEUTROPHILS % 55.9 % (36.0-66.0); PLATELET COUNT, AUTOMATED 235 10^3/uL (150-450); RED BLOOD COUNT 3.92 10^6/uL (4.00-5.40); WHITE BLOOD COUNT 9.1 10^3/uL (4.0-10.0)
[2020-02-20 16:13] LABS: ALBUMIN 3.1 GM/DL (3.2-5.2); ALT/SGPT 21 U/L (12-78); BILIRUBIN,TOTAL 0.4 MG/DL (0.2-1.0); BLOOD UREA NITROGEN 9 MG/DL (7-18); CALCIUM LEVEL 9.1 MG/DL (8.8-10.2); CARBON DIOXIDE LEVEL 25 MEQ/L (21-32); CHLORIDE LEVEL 105 MEQ/L (98-107); CHOLESTEROL LEVEL 131 MG/DL (<200); CHOLESTEROL RISK RATIO 2.729 (<5); CREATININE FOR GFR 0.92 MG/DL (0.55-1.30); FREE T4 0.94 NG/DL (0.76-1.46); GLOMERULAR FILTRATION RATE > 60.0 (>45); GLUCOSE, FASTING 93 MG/DL (70-100); HDL CHOLESTEROL 48 MG/DL (>40); LDL CHOLESTEROL 65 MG/DL (<100); NON-HDL-C 83 MG/DL; POTASSIUM SERUM 4.4 MEQ/L (3.5-5.1); SODIUM LEVEL 137 MEQ/L (136-145); TOTAL PROTEIN 6.8 GM/DL (6.4-8.2); TRIGLYCERIDES LEVEL 89 MG/DL (<150)
[2020-02-20 16:14] LABS: TOTAL 25(OH) VITAMIN D 21.1 NG/ML (30.0-100.0)
== END ==
LOC: M LAB REF 15:12
PROVIDERS: ATTEND Physician Assistant
DX: Z00.01 Encounter for general adult medical examination with abnormal findings (principal); J44.9 Chronic obstructive pulmonary disease, unspecified; K59.00 Constipation, unspecified; J32.0 Chronic maxillary sinusitis; R30.0 Dysuria; L21.0 Seborrhea capitis; I34.1 Nonrheumatic mitral (valve) prolapse; F33.1 Major depressive disorder, recurrent, moderate

== ENCOUNTER → 2020-06-04 | Outpatient (REF) | payer OTHER ==
[~2020-06-04] MED LIST changes: +MONT10TA10 PO; -MONT10TA4 PO
[2020-06-04 16:47] LABS: APPEARANCE, URINE HAZY (CLEAR); BACTERIA, URINE AUTO NEGATIVE (NEGATIVE); BILIRUBIN, URINE AUTO NEGATIVE (NEGATIVE); BLOOD, URINE BLOOD NEGATIVE (NEGATIVE); COLOR, URINE YELLOW (YELLOW); GLUCOSE, URINE (UA) AUTO NEGATIVE (NEGATIVE); KETONE, URINE AUTO NEGATIVE (NEGATIVE); LEUKOCYTE ESTERASE, URINE AUTO TRACE (NEGATIVE); NITRITE, URINE AUTO NEGATIVE (NEGATIVE); PROTEIN, URINE AUTO NEGATIVE (NEGATIVE); RBC, URINE AUTO 2 /HPF (0-3); SPECIFIC GRAVITY URINE AUTO 1.013 (1.002-1.035); SQUAMOUS EPITHELIAL CELL UR AU 5 /HPF (0-6); UROBILINOGEN, URINE AUTO 0.2 mg/dL (0.0-2.0); WBC, URINE AUTO 1 /HPF (0-3)
== END ==
LOC: M LAB REF 16:17
PROVIDERS: ATTEND Physician Assistant Medical
DX: N39.0 Urinary tract infection, site not specified (principal)

== ENCOUNTER → 2020-07-23 | Outpatient (REF) | payer OTHER | LOC: M LAB REF 16:12 | PROVIDERS: ATTEND Pediatrics | DX: N76.0 Acute vaginitis (principal) ==

== ENCOUNTER → 2020-08-16 | Outpatient (REF) | payer OTHER ==
[2020-08-16 12:22] LABS: APPEARANCE, URINE HAZY (CLEAR); BACTERIA, URINE AUTO NEGATIVE (NEGATIVE); BILIRUBIN, URINE AUTO NEGATIVE (NEGATIVE); BLOOD, URINE BLOOD NEGATIVE (NEGATIVE); COLOR, URINE YELLOW (YELLOW); GLUCOSE, URINE (UA) AUTO NEGATIVE (NEGATIVE); KETONE, URINE AUTO NEGATIVE (NEGATIVE); LEUKOCYTE ESTERASE, URINE AUTO TRACE (NEGATIVE); NITRITE, URINE AUTO NEGATIVE (NEGATIVE); PROTEIN, URINE AUTO NEGATIVE (NEGATIVE); RBC, URINE AUTO 2 /HPF (0-3); SPECIFIC GRAVITY URINE AUTO 1.014 (1.002-1.035); SQUAMOUS EPITHELIAL CELL UR AU 14 /HPF (0-6); UROBILINOGEN, URINE AUTO 0.2 mg/dL (0.0-2.0); WBC, URINE AUTO 1 /HPF (0-3)
== END ==
LOC: M LAB REF 12:06
PROVIDERS: ATTEND Physician Assistant Medical
DX: R30.0 Dysuria (principal)

== ENCOUNTER 2020-10-02 13:29 | Emergency (ER) | payer OTHER ==
[~2020-10-02] VITALS: Ht 157.5 cm; Wt 72.7 kg
--- NOTE | 2020-10-02 14:45 | REP ---
INDICATION: fall, injury, decrease ROM COMPARISON: None. TECHNIQUE: AP, lateral, bilateral oblique and sunrise views. FINDINGS: Age-related degenerative changes are appreciated. Lateral view suggests a moderate suprapatellar effusion. No definite, obvious acute fracture or dislocation noted. IMPRESSION: Degenerative changes and suprapatellar effusion. No definite acute fracture appreciated. <Electronically signed by Danilo Saha > 10/02/20 [id number]
[2020-10-02] MEDS ORDERED: NORCO, ANEXSIA 5/325MG TABLET (HYDROcodone/ACETAMINOPHEN) PO ONE (16:15)
[2020-10-02] MEDS ORDERED: ANEC4CRE3 TOP (16:15)
[2020-10-02] MEDS ORDERED: LIDOCAINE 4% CREAM 5GM (LMX4) TOP ONE (16:15)
[2020-10-02] MEDS ORDERED: NEOSPORIN OINT 0.9 GM PKT TOP ONE (16:15)
[2020-10-02 16:41] VITALS: BP 144/83
== END 2020-10-02 16:56 | disposition home or self-care (01) ==
LOC: M ED 13:29
DX: S80.211A Abrasion, right knee, initial encounter (principal); X50.9XXA Other and unspecified overexertion or strenuous movements or postures, initial encounter; Y92.009 Unspecified place in unspecified non-institutional (private) residence as the place of occurrence of the external cause; Y93.E2 Activity, laundry; Y99.8 Other external cause status; F17.200 Nicotine dependence, unspecified, uncomplicated; Z79.01 Long term (current) use of anticoagulants; Z86.718 Personal history of other venous thrombosis and embolism

== ENCOUNTER → 2020-10-30 | Outpatient (CLI) | payer OTHER ==
[~2020-10-30] MED LIST changes: +ANEC4CRE3 TOP
--- NOTE | 2020-10-30 13:55 | REP ---
INDICATION: PAIN. COMPARISON: Comparison radiographs October 02, 2020.. TECHNIQUE: Standing AP view of both knees. FINDINGS: Standing AP view both knees demonstrate a slightly depressed lateral tibial plateau fracture on the right extending to the level of the tibial spines. There is some diffuse osteopenia. There is mild medial compartment joint space narrowing bilaterally. No fracture is noted on the left. IMPRESSION: Subacute slightly depressed lateral tibial plateau fracture right knee. <Electronically signed by Dante Osborn > 10/30/20 [id number]
== END ==
LOC: M SOG 13:17
PROVIDERS: ATTEND Orthopaedic Surgery Adult Reconstructive Orthopaedic Surgery
DX: S82.141A Displaced bicondylar fracture of right tibia, initial encounter for closed fracture (principal); X58.XXXA Exposure to other specified factors, initial encounter; Y92.9 Unspecified place or not applicable

== ENCOUNTER → 2020-11-12 | Outpatient (CLI) | payer OTHER ==
--- NOTE | 2020-11-12 14:30 | REP ---
INDICATION: INTERNAL DERANGEMENT RT KNEE W/PN ? FX. COMPARISON: None. TECHNIQUE: Standard helical technique using 1.5 mm increments reconstructed both sagittal coronal planes. Post processing also rendered 3D imaging. FINDINGS: There is a fracture of the lateral tibial plateau with slight impaction. The maximal surface depression is approximately 2.75 mm. This is at the posterior component. There is also evidence of a fracture involving the medial and lateral tibial eminence. The horizontal fracture of the medial tibial eminence has an intra-articular component within the medial tibial plateau. There is slight tricompartmental marginal osteophytosis with medial compartmental narrowing and medial subchondral sclerosis. IMPRESSION: Fractures and other findings as described above. <Electronically signed by Duncan Gaytan > 11/12/20 [id number]
== END ==
LOC: M PLAIMG 13:24
PROVIDERS: ATTEND Orthopaedic Surgery Adult Reconstructive Orthopaedic Surgery
DX: M23.91 Unspecified internal derangement of right knee (principal); S82.141A Displaced bicondylar fracture of right tibia, initial encounter for closed fracture; X58.XXXA Exposure to other specified factors, initial encounter; Y92.9 Unspecified place or not applicable

== ENCOUNTER 2020-12-11 14:04 | Emergency (ER) | payer OTHER ==
[~2020-12-11] VITALS: Ht 157.5 cm; Wt 79.5 kg
[~2020-12-11 14:04] MED LIST changes: -CEFD1CAP8 PO; +CEFD300C41 PO; -FLUC150T PO; +FLUC150T9 PO; -MONT10TA10 PO; +MONT10TA97 PO; +OMEP-173 PO; -OMEP-218 PO
[2020-12-11 14:06] VITALS: BP 104/74
[2020-12-11] MEDS ORDERED: ACET1TAB16 PO (19:53)
== END 2020-12-11 20:50 | disposition home or self-care (01) ==
LOC: M ED 14:04
DX: S52.532A Colles' fracture of left radius, initial encounter for closed fracture (principal); W18.2XXA Fall in (into) shower or empty bathtub, initial encounter; Y92.099 Unspecified place in other non-institutional residence as the place of occurrence of the external cause; Y93.9 Activity, unspecified; Y99.9 Unspecified external cause status; J44.9 Chronic obstructive pulmonary disease, unspecified; K21.9 Gastro-esophageal reflux disease without esophagitis; F32.9 Major depressive disorder, single episode, unspecified; Z86.718 Personal history of other venous thrombosis and embolism; Z79.01 Long term (current) use of anticoagulants; Z79.899 Other long term (current) drug therapy

== ENCOUNTER → 2021-01-23 | Outpatient (CLI) | payer OTHER ==
[~2021-01-23] MED LIST changes: +ACET1TAB16 PO; +CEFD1CAP8 PO; -CEFD300C41 PO; +FLUC150T PO; -FLUC150T9 PO; +MONT10TA10 PO; -MONT10TA97 PO; -OMEP-173 PO; +OMEP-218 PO
--- NOTE | 2021-01-23 14:44 | REP ---
INDICATION: PAIN IN LT WRIST. COMPARISON: 12/11/2020 TECHNIQUE: AP, lateral, oblique views of the left wrist. FINDINGS: The comminuted distal radial fracture (Colles' fracture) with dorsal angulation demonstrates callus formation and periosteal reaction. Subtle ulnar styloid fracture suspected. Carpal bones are grossly intact. IMPRESSION: Distal radial fracture with dorsal angulation demonstrates early healing. Correlation is required. <Electronically signed by Danilo Saha > 01/23/21 [id number]
--- NOTE | 2021-01-23 14:50 | REP ---
INDICATION: PAIN IN RT WRIST. COMPARISON: 10/02/2020 TECHNIQUE: AP and lateral views right knee FINDINGS: The medial and lateral portions of the tibial plateau are relatively well aligned and the subtle nondisplaced fracture identified by CT is again essentially not visible by radiographic evaluation. There does appear to be slight increased sclerosis in the subchondral region of the proximal tibia which may represent underlying callus formation and healing process. Underlying age-related degenerative changes including minimal medial joint space narrowing is again noted and stable. Lateral view demonstrates no obvious effusion. Patella appears intact and normal. IMPRESSION: Previously identified subtle nondisplaced tibial fracture identified only by CT is again and essentially non visible by radiographic evaluation. Subtle subchondral sclerosis suggesting callus formation and healing is however identified. <Electronically signed by Danilo Saha > 01/23/21 [id number]
== END ==
LOC: M SOG 14:07
PROVIDERS: ATTEND Orthopaedic Surgery Adult Reconstructive Orthopaedic Surgery
DX: M25.532 Pain in left wrist (principal); S52.532D Colles' fracture of left radius, subsequent encounter for closed fracture with routine healing; S82.101D Unspecified fracture of upper end of right tibia, subsequent encounter for closed fracture with routine healing; X58.XXXD Exposure to other specified factors, subsequent encounter; Y92.9 Unspecified place or not applicable; Y99.9 Unspecified external cause status; Y93.9 Activity, unspecified

== ENCOUNTER → 2021-04-04 | Outpatient (REF) | payer OTHER ==
[~2021-04-04] MED LIST changes: -CEFD1CAP8 PO; +CEFD300C41 PO; -FLUC150T PO; +FLUC150T9 PO; -MONT10TA10 PO; +MONT10TA97 PO; +OMEP-173 PO; -OMEP-218 PO
[2021-04-04 15:07] LABS: APPEARANCE, URINE HAZY (CLEAR); BACTERIA, URINE AUTO NEGATIVE (NEGATIVE); BILIRUBIN, URINE AUTO 1+ (NEGATIVE); BLOOD, URINE BLOOD NEGATIVE (NEGATIVE); COLOR, URINE YELLOW (YELLOW); GLUCOSE, URINE (UA) AUTO NEGATIVE (NEGATIVE); KETONE, URINE AUTO TRACE mg/dL (NEGATIVE); LEUKOCYTE ESTERASE, URINE AUTO NEGATIVE (NEGATIVE); MUCUS, URINE SMALL (NEGATIVE); NITRITE, URINE AUTO NEGATIVE (NEGATIVE); PROTEIN, URINE AUTO NEGATIVE (NEGATIVE); RBC, URINE AUTO 1 /HPF (0-3); SPECIFIC GRAVITY URINE AUTO 1.017 (1.002-1.035); SQUAMOUS EPITHELIAL CELL UR AU 12 /HPF (0-6); UROBILINOGEN, URINE AUTO 0.2 mg/dL (0.0-2.0); WBC, URINE AUTO 2 /HPF (0-3)
== END ==
LOC: M LAB REF 14:47
PROVIDERS: ATTEND Physician Assistant
DX: N39.0 Urinary tract infection, site not specified (principal)

== ENCOUNTER → 2021-05-19 | Outpatient (CLI) | payer OTHER ==
[~2021-05-19] MED LIST changes: +FLUC150T PO; -FLUC150T9 PO; -OMEP-173 PO; +OMEP-218 PO
== END ==
LOC: M SOG 13:14
PROVIDERS: ATTEND Orthopaedic Surgery Adult Reconstructive Orthopaedic Surgery
DX: S52.502A Unspecified fracture of the lower end of left radius, initial encounter for closed fracture (principal); S82.101A Unspecified fracture of upper end of right tibia, initial encounter for closed fracture; X58.XXXA Exposure to other specified factors, initial encounter; Y92.9 Unspecified place or not applicable; Y93.9 Activity, unspecified; Y99.9 Unspecified external cause status

== ENCOUNTER → 2021-07-21 | Outpatient (REF) | payer OTHER ==
[~2021-07-21] MED LIST changes: -FLUC150T PO; +FLUC150T9 PO; +OMEP-173 PO; -OMEP-218 PO
[2021-07-21 16:50] LABS: APPEARANCE, URINE HAZY (CLEAR); BACTERIA, URINE AUTO NEGATIVE (NEGATIVE); BILIRUBIN, URINE AUTO NEGATIVE (NEGATIVE); BLOOD, URINE BLOOD NEGATIVE (NEGATIVE); COLOR, URINE YELLOW (YELLOW); GLUCOSE, URINE (UA) AUTO NEGATIVE (NEGATIVE); KETONE, URINE AUTO NEGATIVE (NEGATIVE); LEUKOCYTE ESTERASE, URINE AUTO NEGATIVE (NEGATIVE); MUCUS, URINE SMALL (NEGATIVE); NITRITE, URINE AUTO NEGATIVE (NEGATIVE); PROTEIN, URINE AUTO NEGATIVE (NEGATIVE); RBC, URINE AUTO 1 /HPF (0-3); SQUAMOUS EPITHELIAL CELL UR AU 9 /HPF (0-6); UROBILINOGEN, URINE AUTO 0.2 mg/dL (0.0-2.0); WBC, URINE AUTO 2 /HPF (0-3)
== END ==
LOC: M LAB REF 16:06
PROVIDERS: ATTEND Physician Assistant Medical
DX: R30.0 Dysuria (principal)

== ENCOUNTER → 2022-02-27 | Outpatient (REF) | payer OTHER ==
[~2022-02-27] MED LIST changes: -ACET1TAB16 PO; +ACET300T48 PO
[2022-02-27 19:55] LABS: APPEARANCE, URINE MANUAL CLEAR (CLEAR); COLOR, URINE MANUAL YELLOW (YELLOW)
[2022-02-27 19:56] LABS: BILIRUBIN, URINE MANUAL NEGATIVE (NEGATIVE); BLOOD URINE MANUAL NEGATIVE (NEGATIVE); GLUCOSE, URINE (UA) MANUAL NEGATIVE (NEGATIVE); KETONE, URINE MANUAL NEGATIVE (NEGATIVE); LEUKOCYTE ESTERASE, URINE MAN NEGATIVE (NEGATIVE); NITRITE, URINE MANUAL NEGATIVE (NEGATIVE); PROTEIN, URINE MANUAL NEGATIVE (NEGATIVE); UROBILINOGEN, URINE MANUAL NORMAL (NORMAL)
== END ==
LOC: M LAB REF 19:38
PROVIDERS: ATTEND Physician Assistant
DX: N39.0 Urinary tract infection, site not specified (principal)

== ENCOUNTER → 2022-06-12 | Outpatient (CLI) | payer OTHER | LOC: M RAD 13:30 | PROVIDERS: ATTEND Physician Assistant | DX: R05.9 Cough, unspecified (principal); R91.8 Other nonspecific abnormal finding of lung field ==

== ENCOUNTER → 2022-07-10 | Outpatient (CLI) | payer MEDICARE, OTHER | LOC: M RAD 16:00 | PROVIDERS: ATTEND Physician Assistant | DX: J18.9 Pneumonia, unspecified organism (principal) ==

== ENCOUNTER → 2022-09-17 | Outpatient (REF) | payer OTHER ==
[~2022-09-17] MED LIST changes: +FLUT50SP17 NARES; -FLUTISP NARES
== END ==
LOC: M LAB REF 16:14
PROVIDERS: ATTEND Physician Assistant
DX: J44.9 Chronic obstructive pulmonary disease, unspecified (principal); R26.89 Other abnormalities of gait and mobility

== ENCOUNTER → 2022-10-01 | Outpatient (REF) | payer OTHER | LOC: M LAB REF 16:03 | PROVIDERS: ATTEND Physician Assistant | DX: R26.89 Other abnormalities of gait and mobility (principal); J41.1 Mucopurulent chronic bronchitis ==

== ENCOUNTER → 2022-11-11 | Outpatient (CLI) | payer OTHER | LOC: M SOG 09:23 | PROVIDERS: ATTEND Physician Assistant | DX: S52.502A Unspecified fracture of the lower end of left radius, initial encounter for closed fracture (principal); Z53.8 Procedure and treatment not carried out for other reasons ==

== ENCOUNTER 2022-11-19 15:27 | Emergency (ER) | payer OTHER ==
[~2022-11-19] VITALS: Ht 157.5 cm; Wt 79.4 kg
[2022-11-19 15:27] VITALS: TEMP 98.8
[2022-11-19] MEDS ORDERED: HYDR-3713 PO (15:41)
[2022-11-19] MEDS ORDERED: AUGM500T34 PO (15:41)
[2022-11-19] MEDS ORDERED: PRED10PA PO (15:41)
[2022-11-19 17:06] VITALS: BP 115/77; O2SAT 95
== END 2022-11-19 17:11 | disposition home or self-care (01) ==
LOC: M ED 15:27
DX: R60.9 Edema, unspecified (principal); I34.1 Nonrheumatic mitral (valve) prolapse; K21.9 Gastro-esophageal reflux disease without esophagitis; Z86.718 Personal history of other venous thrombosis and embolism; Z79.01 Long term (current) use of anticoagulants; Z79.899 Other long term (current) drug therapy

== ENCOUNTER → 2022-12-14 | Outpatient (CLI) | payer OTHER ==
[~2022-12-14] MED LIST changes: +AUGM500T34 PO; +HYDR-3713 PO; +PRED10PA PO
== END ==
LOC: M SOG 07:54
PROVIDERS: ATTEND Physician Assistant
DX: S52.502A Unspecified fracture of the lower end of left radius, initial encounter for closed fracture (principal); Z53.9 Procedure and treatment not carried out, unspecified reason

== ENCOUNTER → 2022-12-25 | Outpatient (CLI) | payer OTHER | LOC: M SOG 08:01 | PROVIDERS: ATTEND Physician Assistant | DX: M25.532 Pain in left wrist (principal); Z53.9 Procedure and treatment not carried out, unspecified reason ==

== ENCOUNTER → 2023-02-22 | Outpatient (CLI) | payer OTHER ==
[~2023-02-22] MED LIST changes: -CEFD300C41 PO; +CEFD300C42 PO; +LORA-1041; -LORA-674; -OXYB5TAB10 PO; +OXYB5TAB11 PO
== END ==
LOC: M SOG 07:56
PROVIDERS: ATTEND Physician Assistant
DX: M25.532 Pain in left wrist (principal); Z53.9 Procedure and treatment not carried out, unspecified reason

== ENCOUNTER → 2023-03-22 | Outpatient (CLI) | payer OTHER | LOC: M SOG 14:45 | PROVIDERS: ATTEND Physician Assistant | DX: M25.532 Pain in left wrist (principal); Z53.9 Procedure and treatment not carried out, unspecified reason ==

== ENCOUNTER → 2023-05-12 | Outpatient (REF) | payer OTHER ==
[~2023-05-12] MED LIST changes: +CEFD1CAP9 PO; -CEFD300C42 PO; -FLUT50SP17 NARES; +FLUTISP NARES
== END ==
LOC: M LAB REF 22:26
PROVIDERS: ATTEND Physician Assistant
DX: B34.9 Viral infection, unspecified (principal)

== ENCOUNTER → 2023-05-28 | Outpatient (CLI) | payer OTHER | LOC: M SOG 08:00 | PROVIDERS: ATTEND Physician Assistant | DX: Z53.9 Procedure and treatment not carried out, unspecified reason (principal) ==

== ENCOUNTER → 2023-07-01 | Outpatient (CLI) | payer OTHER ==
[~2023-07-01] MED LIST changes: -OXYB5TAB11 PO; +OXYB5TAB14 PO
== END ==
LOC: M SOG 09:11
PROVIDERS: ATTEND Physician Assistant
DX: S52.502A Unspecified fracture of the lower end of left radius, initial encounter for closed fracture (principal); M17.11 Unilateral primary osteoarthritis, right knee; Y93.9 Activity, unspecified; Y92.9 Unspecified place or not applicable

== ENCOUNTER 2023-08-12 01:32 | Inpatient (IN) | payer MEDICAID, OTHER ==
[~2023-08-12] VITALS: Ht 167.6 cm; Wt 77.7 kg
[~2023-08-12 01:32] MED LIST changes: -LORA-1041; +LORA-1041 PO
[2023-08-12 02:24] LABS: HEMATOCRIT 32.9 % (36.0-47.0); HEMOGLOBIN 10.7 g/dl (12.0-15.5); MEAN CORPUSCULAR HEMOGLOBIN 28.6 pg (27.0-33.0); MEAN CORPUSCULAR HGB CONC 32.5 g/dl (32.0-36.5); PLATELET COUNT, AUTOMATED 256 10^3/uL (150-450); RED BLOOD COUNT 3.74 10^6/uL (4.00-5.40)
[2023-08-12 02:44] LABS: ETHYL ALCOHOL (ETHANOL) < 0.003 % (0.000-0.010)
[2023-08-12 02:46] LABS: ALBUMIN 3.5 G/DL (3.2-5.2); ALKALINE PHOSPHATASE 152 U/L (46-116); ALT/SGPT 18 U/L (7.0-40); AST/SGOT 29 U/L (<34); BILIRUBIN,DIRECT 0.2 MG/DL (<0.4); BILIRUBIN,TOTAL 0.5 MG/DL (0.3-1.2); BLOOD UREA NITROGEN 14 MG/DL (9-23); CALCIUM LEVEL 9.6 MG/DL (8.3-10.6); CARBON DIOXIDE LEVEL 24 MMOL/L (20-31); CHLORIDE LEVEL 107 MMOL/L (98-107); CREATININE FOR GFR 0.82 MG/DL (0.55-1.30); GLOMERULAR FILTRATION RATE > 60.0 (>45); GLUCOSE, FASTING 118 MG/DL (74-106); POTASSIUM SERUM 3.8 MMOL/L (3.5-5.1); SALICYLATE LEVEL < 3.0 MG/DL (<30); SODIUM LEVEL 137 MMOL/L (136-145); TOTAL PROTEIN 7.4 G/DL (5.7-8.2)
[2023-08-12 02:49] LABS: THYROID STIMULATING HORMONE 2.559 uIU/ML (0.55-4.78)
[2023-08-12 05:23] LABS: AMPHETAMINES LEVEL URINE NEGATIVE (NEGATIVE); METHADONE URINE NEGATIVE (NEGATIVE); OPIATES URINE NEGATIVE (NEGATIVE); PHENCYCLIDINE URINE NEGATIVE (NEGATIVE)
[2023-08-12 05:24] LABS: BARBITURATES URINE NEGATIVE (NEGATIVE); BENZODIAZEPINES URINE NEGATIVE (NEGATIVE); COCAINE METABOLITE URINE NEGATIVE (NEGATIVE)
[2023-08-12 05:38] LABS: CANNABINOIDS URINE POSITIVE (NEGATIVE)
[2023-08-12 07:06] LABS: INR 1.04; PARTIAL THROMBOPLASTIN TIME 27.7 SECONDS (24.8-34.2); PROTHROMBIN TIME 13.3 SECONDS (12.5-14.5)
[2023-08-12] MEDS ORDERED: PROP60TA18 PO (12:13)
[2023-08-12] MEDS ORDERED: PARO20TA3 PO (12:13)
[2023-08-12] MEDS ORDERED: OMEP40CA5 PO (12:13)
[2023-08-12] MEDS ORDERED: HYDR-3363 PO (12:13)
[2023-08-12] MEDS ORDERED: NYAM10003 TOP (12:13)
[2023-08-12] MEDS ORDERED: FLUT1BLS5 INH (12:13)
[2023-08-12] MEDS ORDERED: HOME MED LIST COMPLETE! XX SCH (12:15)
[2023-08-12] MEDS ORDERED: MOM 30ML SUSPENSION UDC PO PRN (15:05)
[2023-08-12] MEDS ORDERED: MAALOX 30 ML SUSP *UDC PO PRN (15:05)
[2023-08-12] MEDS ORDERED: diphenhydrAMINE 25MG CAP PO PRN (15:05)
[2023-08-12 17:46] VITALS: BP 146/78; TEMP 97.7; O2SAT 97
[2023-08-12] MEDS: IBUPROFEN 400MG TAB PO PRN (18:37)
[2023-08-12] MEDS ORDERED: FLUTICASONE PROP 0.05% NASAL SPRAY 16 GM (FLONASE) NARES PRN (19:05)
[2023-08-12] MEDS: oxyBUTYnin 5 MG TAB PO SCH (22:01)
[2023-08-12] MEDS: NYSTATIN 100,000 UNITS/GM TOPICAL PWD 15GM TOP SCH (22:01)
[2023-08-12] MEDS: DOCUSATE SODIUM 100MG CAPSULE PO SCH (22:01)
[2023-08-12] MEDS: ADVAIR HFA 115/21MCG INHALER INH SCH (22:02)
[2023-08-12] MEDS: APIXABAN 5 MG TAB (ELIQUIS) PO SCH (22:02)
[2023-08-13] MEDS: ALBUTEROL 90 MCG/ACT 8GM HFA INHALER INH PRN (05:02)
[2023-08-13 06:51] VITALS: BP 118/58; TEMP 98.4; O2SAT 96
[2023-08-13] MEDS: IPRATROPIUM 0.5MG/ALBUTEROL 2.5MG INH SOL UD 3ML (DUONEB) INH SCH (08:00)
[2023-08-13] MEDS ORDERED: PARoxetine 20MG TABLET PO SCH (09:00)
[2023-08-13] MEDS: OMEPRAZOLE 20MG CAP PO SCH (09:08)
[2023-08-13] MEDS: PROPRANOLOL 20 MG TAB PO SCH (09:08)
[2023-08-13] MEDS: MONTELUKAST 10 MG TAB PO SCH (09:09)
[2023-08-13] MEDS: LORATADINE 10 MG TAB PO SCH (09:09)
[2023-08-13] MEDS: PARoxetine 20MG TABLET PO SCH (09:09)
[2023-08-13] MEDS: PREVNAR-20 VACCINE 0.5ML SYRINGE IM.IMMUN ONE (09:43)
[2023-08-13] MEDS: FLUZONE HIGH DOSE(65YR UP)QUAD/PF 240MCG/0.7ML SYRINGE IM.IMMUN ONE (09:45)
[2023-08-13] MEDS: NICOTINE 14 MG/24 HR TRANSDERMAL TD SCH (11:35)
[2023-08-13] MEDS: TIOTROPIUM INHALER/CAPSULE (SPIRIVA) INH SCH (11:35)
[2023-08-13 16:28] VITALS: BP 141/77; TEMP 97.8; O2SAT 100
[2023-08-13] MEDS: RAMELTEON 8 MG TAB (ROZEREM) PO SCH (21:01)
[2023-08-13] MEDS: traZODone 50 MG TAB PO PRN (21:05)
[2023-08-14 06:21] VITALS: BP 107/54; TEMP 98.4; O2SAT 95
[2023-08-14 16:00] VITALS: BP 121/70; TEMP 97.5; O2SAT 98
[2023-08-15 06:07] VITALS: BP 133/66; TEMP 98.7; O2SAT 100
[2023-08-15 08:17] LABS: CHOLESTEROL RISK RATIO 2.41 (<5); HDL CHOLESTEROL 42.3 MG/DL (>40); LDL CHOLESTEROL 42.5 MG/DL (<100); NON-HDL-C 59.7 MG/DL
[2023-08-15] MEDS: ACETAMINOPHEN TAB 650MG DOSE (2X325MG) PO PRN (15:46)
[2023-08-15 15:57] VITALS: BP 131/72; TEMP 97.9; O2SAT 98
[2023-08-16 06:16] VITALS: BP 130/67; TEMP 96.7
[2023-08-16] MEDS ORDERED: IPRATROPIUM 0.5MG/ALBUTEROL 2.5MG INH SOL UD 3ML (DUONEB) INH PRN (09:00)
[2023-08-16 17:52] VITALS: BP 137/94; TEMP 96.6
[2023-08-17 06:33] VITALS: BP 121/70; TEMP 97.6; O2SAT 94
[2023-08-17 09:43] VITALS: BP 109/68
[2023-08-17 16:05] VITALS: BP 118/76; TEMP 96.7; O2SAT 92
[2023-08-18 06:40] VITALS: BP 102/58; TEMP 98.5; O2SAT 93
[2023-08-18 09:23] VITALS: BP 109/81
[2023-08-18] MEDS ORDERED: NICO14PA TD (10:04)
[2023-08-18] MEDS ORDERED: TRAZ-252 PO (10:04)
[2023-08-18] MEDS ORDERED: RAME8TAB2 PO (10:04)
[2023-08-18] MEDS ORDERED: FLUT1BLS5 INH (10:04)
[2023-08-18] MEDS ORDERED: ELIQ5TAB PO (10:04)
[2023-08-18] MEDS ORDERED: PARO30TA65 PO (10:04)
[2023-08-18] MEDS ORDERED: ALBU8.5H INH (10:04)
[2023-08-18] MEDS: SUMAtriptan SUCCINATE 25 MG TAB PO PRN (10:10)
== END 2023-08-18 13:49 | disposition home or self-care (01) | DRG 756 ==
LOC: M ED 01:32 → M ED INP 15:01 → M PSY 17:15
PROVIDERS: ADMIT Student in an Organized Health Care Education/Training Program; ATTEND Student in an Organized Health Care Education/Training Program
DX: F41.9 Anxiety disorder, unspecified (principal); I27.20 Pulmonary hypertension, unspecified; R45.851 Suicidal ideations; J43.9 Emphysema, unspecified; J44.9 Chronic obstructive pulmonary disease, unspecified; F12.90 Cannabis use, unspecified, uncomplicated; F17.200 Nicotine dependence, unspecified, uncomplicated; F43.20 Adjustment disorder, unspecified; Z63.4 Disappearance and death of family member; Z79.899 Other long term (current) drug therapy; Z86.718 Personal history of other venous thrombosis and embolism; K59.00 Constipation, unspecified; G43.909 Migraine, unspecified, not intractable, without status migrainosus; J45.909 Unspecified asthma, uncomplicated; E66.9 Obesity, unspecified; K21.9 Gastro-esophageal reflux disease without esophagitis; B18.2 Chronic viral hepatitis C; F32.A Depression, unspecified; I34.0 Nonrheumatic mitral (valve) insufficiency; N32.81 Overactive bladder

== ENCOUNTER 2023-08-24 00:03 | Emergency (ER) | payer MEDICAID, OTHER ==
[~2023-08-24] VITALS: Ht 160 cm; Wt 76.5 kg
[~2023-08-24 00:03] MED LIST changes: +FLUT1BLS5 INH; +HYDR-3363 PO; +NICO14PA TD; +NYAM10003 TOP; +OMEP40CA5 PO; +PARO20TA3 PO; +PARO30TA65 PO; +PROP60TA18 PO; +RAME8TAB2 PO; +TRAZ-252 PO
[2023-08-24] MEDS ORDERED: PRED20TA PO (03:18)
[2023-08-24] MEDS: predniSONE 20 MG TAB PO ONE (03:29)
[2023-08-24 03:45] VITALS: BP 128/78; TEMP 98.8; O2SAT 98
[2023-08-24] MEDS ORDERED: FLUT1BLS5 IH (11:21)
[2023-08-24] MEDS ORDERED: NICO14DI6 TD (11:21)
[2023-08-24] MEDS ORDERED: ROZE8TAB16 PO (11:21)
[2023-08-24] MEDS ORDERED: PARO30TA65 PO (11:21)
[2023-08-24] MEDS ORDERED: ACET-1349 PO (11:21)
[2023-08-24] MEDS ORDERED: TRAZ-252 PO (11:21)
[2023-08-24] MEDS ORDERED: VENTAER INH (11:21)
[2023-08-24] MEDS ORDERED: SENN-130 PO (11:21)
== END 2023-08-24 03:56 | disposition home or self-care (01) ==
LOC: M ED 00:03
DX: F34.1 Dysthymic disorder (principal); J20.9 Acute bronchitis, unspecified; J45.909 Unspecified asthma, uncomplicated; G47.00 Insomnia, unspecified; N32.81 Overactive bladder

== ENCOUNTER 2023-08-24 09:09 | Emergency (ER) | payer OTHER ==
[~2023-08-24] VITALS: Ht 157.5 cm; Wt 77.7 kg
[~2023-08-24 09:09] MED LIST changes: +PRED20TA PO
[2023-08-24] MEDS ORDERED: MED REC IN PROGRESS XX SCH (10:15)
[2023-08-24 10:25] LABS: HEMATOCRIT 37.8 % (36.0-47.0); MEAN CORPUSCULAR HEMOGLOBIN 28.5 pg (27.0-33.0); MEAN CORPUSCULAR HGB CONC 31.7 g/dl (32.0-36.5); MEAN CORPUSCULAR VOLUME 89.8 fl (80.0-96.0); PLATELET COUNT, AUTOMATED 257 10^3/uL (150-450); RED BLOOD COUNT 4.21 10^6/uL (4.00-5.40); WHITE BLOOD COUNT 5.5 10^3/uL (4.0-10.0)
[2023-08-24 10:53] LABS: ETHYL ALCOHOL (ETHANOL) < 0.003 % (0.000-0.010)
[2023-08-24 10:54] LABS: ALBUMIN 3.7 G/DL (3.2-5.2); ALKALINE PHOSPHATASE 176 U/L (46-116); ALT/SGPT 26 U/L (7.0-40); AST/SGOT 26 U/L (<34); BILIRUBIN,DIRECT 0.2 MG/DL (<0.4); BILIRUBIN,TOTAL 0.4 MG/DL (0.3-1.2); BLOOD UREA NITROGEN 11 MG/DL (9-23); CALCIUM LEVEL 9.7 MG/DL (8.3-10.6); CARBON DIOXIDE LEVEL 27 MMOL/L (20-31); CHLORIDE LEVEL 102 MMOL/L (98-107); CREATININE FOR GFR 0.65 MG/DL (0.55-1.30); GLOMERULAR FILTRATION RATE > 60.0 (>45); GLUCOSE, FASTING 112 MG/DL (74-106); POTASSIUM SERUM 4.1 MMOL/L (3.5-5.1); SODIUM LEVEL 135 MMOL/L (136-145); TOTAL PROTEIN 7.9 G/DL (5.7-8.2)
[2023-08-24 10:56] LABS: THYROID STIMULATING HORMONE 1.147 uIU/ML (0.55-4.78)
[2023-08-24 11:03] LABS: AMPHETAMINES LEVEL URINE NEGATIVE (NEGATIVE)
[2023-08-24 11:04] LABS: BARBITURATES URINE NEGATIVE (NEGATIVE); BENZODIAZEPINES URINE NEGATIVE (NEGATIVE); CANNABINOIDS URINE NEGATIVE (NEGATIVE); COCAINE METABOLITE URINE NEGATIVE (NEGATIVE); METHADONE URINE NEGATIVE (NEGATIVE); OPIATES URINE NEGATIVE (NEGATIVE); PHENCYCLIDINE URINE NEGATIVE (NEGATIVE)
[2023-08-24] MEDS ORDERED: SENN-130 PO (11:21)
[2023-08-24] MEDS ORDERED: FLUT1BLS5 IH (11:21)
[2023-08-24] MEDS ORDERED: ROZE8TAB16 PO (11:21)
[2023-08-24] MEDS ORDERED: VENTAER INH (11:21)
[2023-08-24] MEDS ORDERED: TRAZ-252 PO (11:21)
[2023-08-24] MEDS ORDERED: NICO14DI6 TD (11:21)
[2023-08-24] MEDS ORDERED: ACET-1349 PO (11:21)
[2023-08-24] MEDS ORDERED: PARO30TA65 PO (11:21)
[2023-08-24] MEDS ORDERED: HOME MED LIST COMPLETE! XX SCH (11:25)
[2023-08-24 11:38] LABS: SALICYLATE LEVEL < 3.0 MG/DL (<30)
[2023-08-24 12:21] LABS: APPEARANCE, URINE CLEAR (CLEAR); BACTERIA, URINE AUTO NEGATIVE (NEGATIVE); BILIRUBIN, URINE AUTO NEGATIVE (NEGATIVE); BLOOD, URINE BLOOD NEGATIVE (NEGATIVE); COLOR, URINE YELLOW (YELLOW); GLUCOSE, URINE (UA) AUTO NEGATIVE (NEGATIVE); KETONE, URINE AUTO NEGATIVE (NEGATIVE); LEUKOCYTE ESTERASE, URINE AUTO NEGATIVE (NEGATIVE); NITRITE, URINE AUTO NEGATIVE (NEGATIVE); PROTEIN, URINE AUTO NEGATIVE (NEGATIVE); RBC, URINE AUTO 0 /HPF (0-3); SPECIFIC GRAVITY URINE AUTO 1.006 (1.002-1.035); SQUAMOUS EPITHELIAL CELL UR AU 0 /HPF (0-6); UROBILINOGEN, URINE AUTO 0.2 mg/dL (0.0-2.0); WBC, URINE AUTO 0 /HPF (0-3)
[2023-08-24] MEDS ORDERED: MOM 30ML SUSPENSION UDC PO PRN (18:35)
[2023-08-24] MEDS ORDERED: ALBUTEROL 90 MCG/ACT 8GM HFA INHALER INH PRN (18:35)
[2023-08-24] MEDS ORDERED: ACETAMINOPHEN TAB 650MG DOSE (2X325MG) PO PRN (18:35)
[2023-08-24] MEDS ORDERED: FLUTICASONE PROP 0.05% NASAL SPRAY 16 GM (FLONASE) NARES PRN (18:35)
[2023-08-24] MEDS: ADVAIR HFA 115/21MCG INHALER INH SCH (20:48)
[2023-08-24] MEDS: RAMELTEON 8 MG TAB (ROZEREM) PO SCH (21:57)
[2023-08-24] MEDS: traZODone 50 MG TAB PO SCH (21:57)
[2023-08-24] MEDS: NYSTATIN 100,000 UNITS/GM TOPICAL PWD 15GM TOP SCH (21:57)
[2023-08-24] MEDS: oxyBUTYnin 5 MG TAB PO SCH (21:57)
[2023-08-25] MEDS: TIOTROPIUM INHALER/CAPSULE (SPIRIVA) INH SCH (08:00)
[2023-08-25] MEDS: PROPRANOLOL 20 MG TAB PO SCH (09:00)
[2023-08-25] MEDS: MONTELUKAST 10 MG TAB PO SCH (10:00)
[2023-08-25] MEDS: LORATADINE 10 MG TAB PO SCH (10:01)
[2023-08-25] MEDS: PARoxetine 20MG TABLET PO SCH (10:02)
[2023-08-25] MEDS: OMEPRAZOLE 20MG CAP PO SCH (10:02)
[2023-08-25] MEDS: NICOTINE 14 MG/24 HR TRANSDERMAL TD SCH (10:03)
[2023-08-25 12:19] VITALS: BP 135/79; TEMP 98.1; O2SAT 97
[2023-08-26] MEDS ORDERED: METO1TAB32 PO (13:14)
[2023-08-26] MEDS ORDERED: METO1TAB87 PO (13:22)
== END 2023-08-25 12:20 | disposition home or self-care (01) ==
LOC: EDBD 09:09 → M ED 09:09 → CANBEDREQ 16:07 → M ED 08-25 12:20
DX: S02.2XXA Fracture of nasal bones, initial encounter for closed fracture (principal); S00.81XA Abrasion of other part of head, initial encounter; F22 Delusional disorders; F23 Brief psychotic disorder; W19.XXXA Unspecified fall, initial encounter; Y92.410 Unspecified street and highway as the place of occurrence of the external cause; Y93.9 Activity, unspecified; Y99.9 Unspecified external cause status; E11.9 Type 2 diabetes mellitus without complications; J45.909 Unspecified asthma, uncomplicated; J44.9 Chronic obstructive pulmonary disease, unspecified; F32.A Depression, unspecified; Z86.19 Personal history of other infectious and parasitic diseases; F17.200 Nicotine dependence, unspecified, uncomplicated; Z79.01 Long term (current) use of anticoagulants; Z79.899 Other long term (current) drug therapy
CPT/HCPCS: 70160; 70450; 71046; 72125; 80048; 80076; 80143; 80307; 81001; 82077; 84443; 85027; 87486; 87581; 87633; 87798; 93005; 99283; 99284; J7512

== ENCOUNTER 2023-08-25 16:59 | Observation (INO) | payer MEDICARE, OTHER ==
[~2023-08-25] VITALS: Ht 157.5 cm; Wt 75.7 kg
[~2023-08-25 16:59] MED LIST changes: +ACET-1349 PO; +FLUT1BLS5 IH; +NICO14DI6 TD; +ROZE8TAB16 PO; +SENN-130 PO; +VENTAER INH
[2023-08-25 17:27] LABS: HEMATOCRIT 34.5 % (36.0-47.0); MEAN CORPUSCULAR HEMOGLOBIN 28.8 pg (27.0-33.0); MEAN CORPUSCULAR HGB CONC 31.9 g/dl (32.0-36.5); MEAN CORPUSCULAR VOLUME 90.3 fl (80.0-96.0); PLATELET COUNT, AUTOMATED 260 10^3/uL (150-450); RED BLOOD COUNT 3.82 10^6/uL (4.00-5.40); WHITE BLOOD COUNT 9.7 10^3/uL (4.0-10.0)
[2023-08-25 17:57] LABS: BLOOD UREA NITROGEN 13 MG/DL (9-23); CALCIUM LEVEL 9.2 MG/DL (8.3-10.6); CARBON DIOXIDE LEVEL 26 MMOL/L (20-31); CHLORIDE LEVEL 103 MMOL/L (98-107); CREATININE FOR GFR 0.78 MG/DL (0.55-1.30); GLOMERULAR FILTRATION RATE > 60.0 (>45); GLUCOSE, FASTING 121 MG/DL (74-106); POTASSIUM SERUM 3.7 MMOL/L (3.5-5.1); SODIUM LEVEL 135 MMOL/L (136-145)
[2023-08-25] MEDS ORDERED: HOME MED LIST COMPLETE! XX SCH (21:10)
[2023-08-26] VITALS (7 sets, daily range): BP systolic 117–155; BP diastolic 66–93; TEMP 98.1–98.4; O2SAT 95–98
[2023-08-26] MEDS ORDERED: SENOKOT S TAB PO PRN (00:35)
[2023-08-26] MEDS ORDERED: FLUTICASONE PROP 0.05% NASAL SPRAY 16 GM (FLONASE) NARES PRN (00:35)
[2023-08-26] MEDS ORDERED: ALBUTEROL 90 MCG/ACT 8GM HFA INHALER INH PRN (00:35)
[2023-08-26] MEDS: RAMELTEON 8 MG TAB (ROZEREM) PO SCH (01:28)
[2023-08-26] MEDS: ACETAMINOPHEN TAB 650MG DOSE (2X325MG) PO PRN (01:28)
[2023-08-26] MEDS: traZODone 50 MG TAB PO SCH (01:29)
[2023-08-26] MEDS: CHLORASEPTIC SPRAY MT PRN (06:30)
[2023-08-26] MEDS: guaiFENesin SYRUP 200MG 10ML UDC PO PRN (06:30)
[2023-08-26 07:48] LABS: HEMATOCRIT 33.3 % (36.0-47.0); HEMOGLOBIN 10.8 g/dl (12.0-15.5); MEAN CORPUSCULAR HEMOGLOBIN 28.6 pg (27.0-33.0); MEAN CORPUSCULAR HGB CONC 32.4 g/dl (32.0-36.5); MEAN CORPUSCULAR VOLUME 88.3 fl (80.0-96.0); PLATELET COUNT, AUTOMATED 254 10^3/uL (150-450); RED BLOOD COUNT 3.77 10^6/uL (4.00-5.40); WHITE BLOOD COUNT 7.2 10^3/uL (4.0-10.0)
[2023-08-26 08:21] LABS: ALBUMIN 2.9 G/DL (3.2-5.2); ALKALINE PHOSPHATASE 136 U/L (46-116); ALT/SGPT 12 U/L (7.0-40); AST/SGOT 19 U/L (<34); BILIRUBIN,TOTAL 0.4 MG/DL (0.3-1.2); BLOOD UREA NITROGEN 8 MG/DL (9-23); CALCIUM LEVEL 8.8 MG/DL (8.3-10.6); CARBON DIOXIDE LEVEL 26 MMOL/L (20-31); CHLORIDE LEVEL 105 MMOL/L (98-107); CREATININE FOR GFR 0.71 MG/DL (0.55-1.30); GLOMERULAR FILTRATION RATE > 60.0 (>45); GLUCOSE, FASTING 93 MG/DL (74-106); POTASSIUM SERUM 3.9 MMOL/L (3.5-5.1); SODIUM LEVEL 137 MMOL/L (136-145); TOTAL PROTEIN 6.5 G/DL (5.7-8.2)
[2023-08-26] MEDS ORDERED: DOCUSATE SODIUM 100MG CAPSULE PO SCH (09:00)
[2023-08-26] MEDS: ADVAIR HFA 115/21MCG INHALER INH SCH (09:04)
[2023-08-26] MEDS: MONTELUKAST 10 MG TAB PO SCH (09:22)
[2023-08-26] MEDS: oxyBUTYnin 5 MG TAB PO SCH (09:22)
[2023-08-26] MEDS: PANTOPRAZOLE 40MG TAB (PROTONIX) PO SCH (09:22)
[2023-08-26] MEDS: PARoxetine 20MG TABLET PO SCH (09:22)
[2023-08-26] MEDS: APIXABAN 5 MG TAB (ELIQUIS) PO SCH (09:22)
[2023-08-26] MEDS: PROPRANOLOL 20 MG TAB PO SCH (09:22)
[2023-08-26] MEDS: DOCUSATE SODIUM 100MG CAPSULE PO SCH (09:22)
[2023-08-26] MEDS: NICOTINE 14 MG/24 HR TRANSDERMAL TD SCH (09:23)
[2023-08-26] MEDS: NYSTATIN 100,000 UNITS/GM TOPICAL PWD 15GM TOP SCH (09:23)
[2023-08-26] MEDS: METOPROLOL SUCC *XL* 12.5MG PER 1/2 TAB (TopROL *XL*) PO SCH (13:08)
[2023-08-26] MEDS ORDERED: METO1TAB32 PO (13:14)
[2023-08-26] MEDS ORDERED: METO1TAB87 PO (13:22)
[2023-08-27 05:27] VITALS: BP 123/79; TEMP 98.4; O2SAT 96
== END 2023-08-27 11:35 | disposition home or self-care (01) ==
LOC: M ED 16:59 → M ED INP 17:00 → M MSPAV 08-26 00:38
PROVIDERS: ADMIT Internal Medicine; ATTEND Student in an Organized Health Care Education/Training Program
DX: I95.1 Orthostatic hypotension (principal); Z86.718 Personal history of other venous thrombosis and embolism; J44.9 Chronic obstructive pulmonary disease, unspecified; F17.210 Nicotine dependence, cigarettes, uncomplicated; J45.909 Unspecified asthma, uncomplicated; E66.9 Obesity, unspecified; F32.A Depression, unspecified; K21.9 Gastro-esophageal reflux disease without esophagitis; N32.81 Overactive bladder; G43.909 Migraine, unspecified, not intractable, without status migrainosus; I34.1 Nonrheumatic mitral (valve) prolapse; I27.20 Pulmonary hypertension, unspecified; Z90.79 Acquired absence of other genital organ(s); Z71.6 Tobacco abuse counseling; Z79.2 Long term (current) use of antibiotics; Z79.01 Long term (current) use of anticoagulants; Z79.899 Other long term (current) drug therapy

== ENCOUNTER 2024-03-06 13:53 | Emergency (ER) | payer OTHER, SELFPAY ==
[~2024-03-06] VITALS: Ht 157.5 cm; Wt 65.9 kg
[~2024-03-06 13:53] MED LIST changes: +METO1TAB32 PO; +METO1TAB87 PO
[2024-03-06 16:58] VITALS: BP 123/87; TEMP 97.3; O2SAT 98
[2024-03-06] MEDS ORDERED: DOXY-441 PO (17:17)
[2024-03-06] MEDS ORDERED: PRED20TA PO (17:18)
== END 2024-03-06 17:47 | disposition home or self-care (01) ==
LOC: M ED 13:53
DX: J44.0 Chronic obstructive pulmonary disease with (acute) lower respiratory infection (principal); I10 Essential (primary) hypertension; K21.9 Gastro-esophageal reflux disease without esophagitis; F17.200 Nicotine dependence, unspecified, uncomplicated; Z86.718 Personal history of other venous thrombosis and embolism; Z90.89 Acquired absence of other organs; Z79.52 Long term (current) use of systemic steroids; Z79.01 Long term (current) use of anticoagulants; Z79.2 Long term (current) use of antibiotics; Z79.1 Long term (current) use of non-steroidal anti-inflammatories (NSAID); Z79.899 Other long term (current) drug therapy

== ENCOUNTER → 2024-05-23 | Outpatient (REF) | payer OTHER ==
[~2024-05-23] MED LIST changes: +DOXY-441 PO
[2024-05-23 16:49] LABS: APPEARANCE, URINE CLOUDY (CLEAR); BACTERIA, URINE AUTO 3+ (NEGATIVE); BILIRUBIN, URINE AUTO NEGATIVE (NEGATIVE); BLOOD, URINE BLOOD 1+ (NEGATIVE); COLOR, URINE AMBER (YELLOW); GLUCOSE, URINE (UA) AUTO NEGATIVE (NEGATIVE); KETONE, URINE AUTO NEGATIVE (NEGATIVE); LEUKOCYTE ESTERASE, URINE AUTO 3+ (NEGATIVE); NITRITE, URINE AUTO POSITIVE (NEGATIVE); PROTEIN, URINE AUTO 1+ mg/dL (NEGATIVE); RBC, URINE AUTO 11 /HPF (0-3); SQUAMOUS EPITHELIAL CELL UR AU 4 /HPF (0-6); WBC, URINE AUTO 147 /HPF (0-3)
== END ==
LOC: M LAB REF 16:13
PROVIDERS: ATTEND Physician Assistant Medical
DX: N39.0 Urinary tract infection, site not specified (principal)

== ENCOUNTER → 2024-07-14 | Outpatient (CLI) | payer OTHER ==
[2024-07-14 17:14] LABS: BASO % 0.3 % (0.0-1.0); EOS # 0.3 10^3/uL (0.0-0.5); EOS % 4.3 % (0.0-3.0); HEMATOCRIT 34.3 % (36.0-47.0); HEMOGLOBIN 10.9 g/dl (12.0-15.5); LYMPH # 2.2 10^3/uL (1.5-5.0); LYMPH % 33.7 % (24.0-44.0); MEAN CORPUSCULAR HEMOGLOBIN 29.1 pg (27.0-33.0); MEAN CORPUSCULAR HGB CONC 31.8 g/dl (32.0-36.5); MEAN CORPUSCULAR VOLUME 91.7 fl (80.0-96.0); MONO # 0.5 10^3/uL (0.0-0.8); MONO % 8.1 % (2.0-8.0); NEUTROPHILS # 3.5 10^3/uL (1.5-8.5); NEUTROPHILS % 53.3 % (36.0-66.0); PLATELET COUNT, AUTOMATED 227 10^3/uL (150-450); RED BLOOD COUNT 3.74 10^6/uL (4.00-5.40); WHITE BLOOD COUNT 6.6 10^3/uL (4.0-10.0)
[2024-07-14 17:37] LABS: ALBUMIN 3.2 G/DL (3.2-5.2); ALKALINE PHOSPHATASE 130 U/L (35-104); ALT/SGPT 10 U/L (7.0-40); AST/SGOT 19 U/L (<34); BILIRUBIN,TOTAL 0.3 MG/DL (0.3-1.2); BLOOD UREA NITROGEN 12 MG/DL (9-23); CALCIUM LEVEL 8.7 MG/DL (8.3-10.6); CARBON DIOXIDE LEVEL 29 MMOL/L (20-31); CHLORIDE LEVEL 104 MMOL/L (98-107); CREATININE FOR GFR 0.85 MG/DL (0.55-1.30); GLOMERULAR FILTRATION RATE > 60.0 (>45); GLUCOSE, FASTING 99 MG/DL (74-106); POTASSIUM SERUM 3.9 MMOL/L (3.5-5.1); SODIUM LEVEL 138 MMOL/L (136-145)
[2024-07-14 17:44] LABS: HEPATITIS B SURFACE ANTIBODY NEGATIVE (POSITIVE)
[2024-07-14 17:57] LABS: HEPATITIS B SURFACE ANTIGEN NEGATIVE (NEGATIVE)
== END ==
LOC: M PLALAB 12:39
PROVIDERS: ATTEND Internal Medicine Infectious Disease
DX: K73.2 Chronic active hepatitis, not elsewhere classified (principal)